=== PATIENT | female | born 1960 | race Caucasian/White ===

== ENCOUNTER 2021-08-22 11:28 | Day surgery (SDC) | payer OTHER ==
[2021-08-21 15:57] VITALS: BMI 26.0
[2021-08-22 13:27] VITALS: TEMP 98
[2021-08-22 13:28] VITALS: BP 129/64; PULSE 59
== END 2021-08-22 13:48 | disposition home or self-care (01) ==
LOC: FASU-ENDO 11:28
PROVIDERS: ATTEND Internal Medicine Gastroenterology
PROC: 0DBL8ZX Excision of Transverse Colon, Via Natural or Artificial Opening Endoscopic, Diagnostic (ICD-10-PCS; 2021-08-22)
PROC: 0DBP8ZX Excision of Rectum, Via Natural or Artificial Opening Endoscopic, Diagnostic (ICD-10-PCS; 2021-08-22)
PROC: 0DBM8ZX Excision of Descending Colon, Via Natural or Artificial Opening Endoscopic, Diagnostic (ICD-10-PCS; 2021-08-22)
PROC: 0DBK8ZX Excision of Ascending Colon, Via Natural or Artificial Opening Endoscopic, Diagnostic (ICD-10-PCS; principal; 2021-08-22 12:54)
DX: Z87.19 Personal history of other diseases of the digestive system (principal); K64.2 Third degree hemorrhoids; K63.89 Other specified diseases of intestine
CPT/HCPCS: 88305-TC

== ENCOUNTER 2022-01-09 11:18 | Day surgery (SDC) | payer OTHER ==
[2022-01-04 16:14] VITALS: BMI 26.0
[2022-01-09 11:40] VITALS: TEMP 97.8
[2022-01-09 13:38] VITALS: BP 127/77; PULSE 64; RESP 18
== END 2022-01-09 13:38 | disposition home or self-care (01) ==
LOC: FASU-ENDO 11:18
PROVIDERS: ATTEND Internal Medicine Gastroenterology
PROC: 0DJD8ZZ Inspection of Lower Intestinal Tract, Via Natural or Artificial Opening Endoscopic (ICD-10-PCS; principal; 2022-01-09 12:24)
DX: Z12.11 Encounter for screening for malignant neoplasm of colon (principal); K64.1 Second degree hemorrhoids